=== PATIENT | female | born 1950 | race African-American/Black ===

== ENCOUNTER → 2017-09-27 | Outpatient (CLI) | payer MEDICARE | END | disposition home or self-care (01) | LOC: SLP 20:27 → EDUNIT# 20:30 | PROVIDERS: ATTEND Family Medicine | DX: G47.33 Obstructive sleep apnea (adult) (pediatric) (principal) | CPT/HCPCS: 95811 ==

== ENCOUNTER → 2017-11-07 | Outpatient (CLI) | payer MEDICARE | LOC: OIH 11:42 | PROVIDERS: ATTEND Family Medicine | DX: Z01.818 Encounter for other preprocedural examination (principal); M47.895 Other spondylosis, thoracolumbar region | CPT/HCPCS: 71046 ==

== ENCOUNTER → 2017-11-09 | Outpatient (CLI) | payer MEDICARE | END | disposition home or self-care (01) | LOC: RAH 08:30 | PROVIDERS: ATTEND Family Medicine | DX: I51.7 Cardiomegaly (principal); R94.31 Abnormal electrocardiogram [ECG] [EKG] | CPT/HCPCS: 93306 ==

== ENCOUNTER → 2018-11-08 | Outpatient (CLI) | payer MEDICARE | END | disposition home or self-care (01) | LOC: RAH 09:22 | PROVIDERS: ATTEND Family Medicine | DX: I11.0 Hypertensive heart disease with heart failure (principal); I50.9 Heart failure, unspecified; I34.0 Nonrheumatic mitral (valve) insufficiency | CPT/HCPCS: 93306 ==

== ENCOUNTER → 2019-01-24 | Outpatient (CLI) | payer MEDICARE | END | disposition home or self-care (01) | LOC: OIH 11:22 | PROVIDERS: ATTEND Family Medicine | DX: M25.561 Pain in right knee (principal); Z96.651 Presence of right artificial knee joint | CPT/HCPCS: 73562 ==

== ENCOUNTER → 2019-04-10 | Outpatient (CLI) | payer OTHER, MEDICARE | END | disposition home or self-care (01) | LOC: SHCH 10:44 | PROVIDERS: ATTEND Internal Medicine Cardiovascular Disease | DX: I08.0 Rheumatic disorders of both mitral and aortic valves (principal) | CPT/HCPCS: 93306 ==

== ENCOUNTER → 2019-07-04 | Outpatient (CLI) | payer MEDICARE ==
[~2019-07-04] MED LIST: ALBUHFA IH; ARIP30TA22 PO; BENZ2TAB10 PO; CLON0.5T23 PO; DOCU-282 PO; DORZ210OS OU; ERGO500014 PO; FURO40TA5 PO; HALO10 PO; LATA2.5D15 OU; METF-444 PO; MIRA50TA PO; NAPR-1023 PO; NETA2.5D OP; RIVA10TA PO; TROS20TA4 PO; [UNRECOGNIZED DRUG - CODE] PO; [UNRECOGNIZED DRUG - OTHER] IM
== END | disposition home or self-care (01) ==
LOC: OIH 10:45
PROVIDERS: ATTEND Family Medicine
DX: I11.0 Hypertensive heart disease with heart failure (principal); I50.32 Chronic diastolic (congestive) heart failure
CPT/HCPCS: 71046

== ENCOUNTER → 2019-07-09 | Outpatient (CLI) | payer MEDICARE | END | disposition home or self-care (01) | LOC: RAH 12:18 | PROVIDERS: ATTEND Family Medicine | DX: M54.5 Low back pain (principal); R31.29 Other microscopic hematuria; E66.9 Obesity, unspecified | CPT/HCPCS: 76770 ==

== ENCOUNTER → 2019-07-18 | Outpatient (CLI) | payer MEDICARE | END | disposition home or self-care (01) | LOC: OIH 10:49 | PROVIDERS: ATTEND Family Medicine | DX: J44.9 Chronic obstructive pulmonary disease, unspecified (principal); I51.7 Cardiomegaly; M85.88 Other specified disorders of bone density and structure, other site; I50.32 Chronic diastolic (congestive) heart failure | CPT/HCPCS: 71046 ==